=== PATIENT | male | born 1985 | race Caucasian/White ===

== ENCOUNTER 2018-01-26 15:01 | Emergency (ER) | payer OTHER ==
[2018-01-26 15:13] VITALS: BP 121/84; PULSE 103; RESP 20; TEMP 98.7; O2SAT 99
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
== END 2018-01-26 17:46 | disposition home or self-care (01) ==
LOC: C.ER 15:01
DX: S93.401D Sprain of unspecified ligament of right ankle, subsequent encounter (principal); S90.01XD Contusion of right ankle, subsequent encounter; S80.12XD Contusion of left lower leg, subsequent encounter; S80.11XD Contusion of right lower leg, subsequent encounter; V89.2XXD Person injured in unspecified motor-vehicle accident, traffic, subsequent encounter